=== PATIENT | male | born 1980 | race Caucasian/White ===

== ENCOUNTER 2019-03-23 18:12 | Emergency (ER) | payer OTHER ==
[~2019-03-23] VITALS: Ht 175.3 cm; Wt 91.2 kg
[2019-03-23 18:20] VITALS: BP 97/60
--- NOTE | 2019-03-23 18:30 | NUR ---
EKG COMPLETED AND HANDED TO DR. SANCHEZ. DR. SANCHEZ NOTIFIED OF PT'S HR 166. PT TO BED 12 WITH STEADY GAIT WITH FAMILY. PT PLACED ON ADVISOR TO COMMAND IN COMBAT AND DRESSED IN GOWN. PT EVALUATED BY DR. SANCHEZ.
--- NOTE | 2019-03-23 18:50 | NUR ---
accompanied by spouse c/o sudden onset of palpitation with left sided chest pain and sob denies etoh/drug use, denies v/d----placed in [facility] room 12 md to bedside passive vagal stimuli practiced as coached by md---pt held breath along with md svt subsided admits to immediate cp relief and no sob --no accessory muscle use noted with full clear speech
[2019-03-23 18:53] LABS: BASOPHILS # (AUTO) 0.1 K/uL (0.00-0.22); BASOPHILS % (AUTO) 0.9 % (0.0-2.0); EOSINOPHILS # (AUTO) 0.2 K/uL (0-0.4); EOSINOPHILS % (AUTO) 2.4 % (0.0-4.0); HEMATOCRIT 45.5 % (36-52); HEMOGLOBIN 15.7 g/dL (12.0-18.0); LYMPHOCYTES % (AUTO) 33.5 % (20.5-51.1); MEAN CORPUSCULAR HEMOGLOBIN 31 pg (27-31); MEAN CORPUSCULAR HGB CONC 35 g/dL (33-37); MONOCYTES # (AUTO) 0.6 K/uL (0.8-1.0); MONOCYTES % (AUTO) 6.4 % (1.7-9.3); NEUTROPHILS % (AUTO) 56.8 % (42.2-75.2); PLATELET COUNT (AUTO) 201 K/uL (140-450); RED BLOOD CELL COUNT(AUTO) 4.99 MIL/uL (4.20-6.10); RED CELL DISTRIBUTION WIDTH 13.3 % (11.6-13.7); WHITE BLOOD COUNT (AUTO) 8.8 K/uL (4.8-10.8)
[2019-03-23 19:02] LABS: ANION GAP 15.6 (8-16); CARBON DIOXIDE 21.9 mmol/L (21-32); CREATININE 1.1 mg/dL (0.7-1.3); POTASSIUM 3.5 mmol/L (3.5-5.1)
[2019-03-23 19:08] LABS: ALBUMIN 3.9 g/dL (3.4-5.0); TOTAL BILIRUBIN 0.3 mg/dL (0.0-1.0)
[2019-03-23 19:15] LABS: FREE T4 (FREE THYROXINE) 0.96 ng/dL (0.76-1.46); THYROID STIMULATING HORMONE 2.19 uIU/mL (0.34-3.74)
--- NOTE | 2019-03-23 19:19 | NUR ---
RECIEVED REPORT FROM LINO [place] THAT VAGAL MANEUVERS (HOLDING BREATH) WERE PERFORMED AND SVT WAS SUCCESSFULLY CARDIOVERTED. HR IS NOW: 85.
--- NOTE | 2019-03-23 19:48 | NUR ---
Dr. Fuller evaluating patient at bedside.
[2019-03-23 20:19] VITALS: BP 121/87
--- NOTE | 2019-03-23 20:19 | NUR ---
Patient discharged with v/s stable. Written and verbal after care instructions given and explained. Patient alert, oriented and verbalized understanding of instructions. Ambulatory with steady gait. All questions addressed prior to discharge. ID band removed. Patient advised to follow up with PMD. Rx of DILTIAZEM given. Patient educated on indication of medication including possible reaction and side effects. Opportunity to ask questions provided and answered.
== END 2019-03-23 20:19 | disposition home or self-care (01) ==
LOC: MED 18:12
DX: I47.1 Supraventricular tachycardia (principal)
CPT/HCPCS: 36415; 71045; 80053; 83880; 84439; 84443; 84484; 85025; 93005; 99284; Q0092

== ENCOUNTER 2023-09-17 14:44 | Emergency (ER) | payer OTHER ==
[~2023-09-17] VITALS: Ht 175.3 cm; Wt 98.5 kg
[2023-09-17 14:50] VITALS: PULSE 84; RESP 20; TEMP 97.7; O2SAT 96
[2023-09-17 15:32] VITALS: TEMP 97.7
[2023-09-17] MEDS ORDERED: METOPROLOL 5 MG/5 ML VIAL IVP ONE (15:45)
[2023-09-17 16:15] LABS: BASOPHILS # (AUTO) 0.1 K/uL (0.00-0.22); BASOPHILS % (AUTO) 0.9 % (0.0-2.0); EOSINOPHILS # (AUTO) 0.2 K/uL (0-0.4); EOSINOPHILS % (AUTO) 2.7 % (0.0-4.0); HEMATOCRIT 44.3 % (36-52); HEMOGLOBIN 15.1 g/dL (12.0-18.0); LYMPHOCYTES % (AUTO) 33.2 % (20.5-51.1); MEAN CORPUSCULAR HEMOGLOBIN 31 pg (27-31); MEAN CORPUSCULAR HGB CONC 34 g/dL (33-37); MEAN CORPUSCULAR VOLUME 92.1 fL (80-94); MONOCYTES # (AUTO) 0.9 K/uL (0.8-1.0); MONOCYTES % (AUTO) 9.7 % (1.7-9.3); NEUTROPHILS # (AUTO) 4.8 K/uL (1.8-7.7); NEUTROPHILS % (AUTO) 53.5 % (42.2-75.2); PLATELET COUNT (AUTO) 218 K/uL (140-450); RED BLOOD CELL COUNT(AUTO) 4.81 MIL/uL (4.20-6.10); RED CELL DISTRIBUTION WIDTH 13.4 % (11.6-13.7)
[2023-09-17 16:40] LABS: THYROID STIMULATING HORMONE 1.36 uIU/mL (0.34-3.74)
[2023-09-17 16:52] VITALS: O2SAT 98
[2023-09-17 17:18] LABS: ALBUMIN 3.6 g/dL (3.4-5.0); ANION GAP 7.8 (8-16); CALCIUM 8.5 mg/dL (8.5-10.1); CARBON DIOXIDE 29.5 mmol/L (21-32); CREATININE 1.2 mg/dL (0.6-1.3); POTASSIUM 4.3 mmol/L (3.5-5.1); TOTAL BILIRUBIN 0.4 mg/dL (0.0-1.0); TOTAL PROTEIN, SERUM 6.8 g/dL (6.4-8.2)
[2023-09-17] MEDS ORDERED: METO25TA PO (17:25)
[2023-09-17 17:39] VITALS: BP 118/82; PULSE 69; RESP 17; O2SAT 98
== END 2023-09-17 18:10 | disposition home or self-care (01) ==
LOC: MED 14:44
DX: I47.10 Supraventricular tachycardia, unspecified (principal); Z79.899 Other long term (current) drug therapy
CPT/HCPCS: 36415; 71045; 80053; 83880; 84443; 84484; 85025; 85379; 93005; 96374; 99291; J3490; Q0092